=== PATIENT | male | born 1945 | race Caucasian/White ===

== ENCOUNTER 2023-05-31 21:14 | Emergency (ER) | payer OTHER ==
[~2023-05-31] VITALS: Ht 188 cm; Wt 170.1 kg
[2023-05-31 21:26] VITALS: BP_SYST 171; PULSE 68; RESP 20; TEMP 98; O2SAT 98
[2023-06-01] MEDS ORDERED: DIPHTH,PERTUSS(ACELL),TET VAC 0.5 ML VIAL (Tdap) I.M. ONE (00:30)
[2023-06-01] MEDS ORDERED: ACETAMINOPHEN 500 MG TABLET PO ONE (00:30)
[2023-06-01 01:43] VITALS: BP_SYST 165; PULSE 63; RESP 18; TEMP 97.8; O2SAT 98
== END 2023-06-01 01:43 | disposition home or self-care (01) ==
LOC: SED 21:14
DX: S56.812A Strain of other muscles, fascia and tendons at forearm level, left arm, initial encounter (principal); Z79.899 Other long term (current) drug therapy; W10.1XXA Fall (on)(from) sidewalk curb, initial encounter; Y93.89 Activity, other specified; Y92.89 Other specified places as the place of occurrence of the external cause; Y99.8 Other external cause status
CPT/HCPCS: 73030; 73090; 90715; 99285